=== PATIENT | female | born 1980 | race Caucasian/White ===

== ENCOUNTER 2024-06-12 12:06 | Outpatient (CLI) | payer OTHER, SELFPAY | END 2024-06-12 12:07 | disposition home or self-care (01) | PROVIDERS: Visit Provider Emergency Medicine | DX: S19.9XXA Unspecified injury of neck, initial encounter (principal); V49.40XA Driver injured in collision with unspecified motor vehicles in traffic accident, initial encounter; Y92.410 Unspecified street and highway as the place of occurrence of the external cause | CPT/HCPCS: A0998 ==